=== PATIENT | female | born 2000 ===

== ENCOUNTER 2024-04-30 18:19 | Outpatient (CLI) | payer OTHER ==
--- NOTE | 2024-05-02 02:05 | Ultrasound Report ---
PROCEDURE: Pelvic w/Transvaginal INDICATIONS: DYSMENORRHEA TECHNIQUE: Transabdominal/transvaginal ultrasound of the pelvis was obtained. Endovaginal scanning wa s necessary due to incomplete visualization of the adnexal and endometrial structures by transabdomin al scanning. COMPARISON: None. FINDINGS: Uterine size: Uterus measures 6.5 x 3.5 x 4.2 cm, and is anteverted. Myometrium: The myometrium is homogeneous. Endometrium: The endometrium measures 7.9 mm in combined thickness. Right ovary: The right ovary measures 3.2 x 2.2 x 3.0 cm. Calculated ovarian volume 11 cc. Left ovary: The left ovary measures 2.6 x 1.9 x 2.6 cm. Calculated ovarian volume 6.6 cc. Other: No pathologic free abdominal or pelvic fluid. IMPRESSION: Unremarkable ultrasound of the pelvis Reviewed by: Simon Chen MD on 05/02/2024 1:03 AM [facility]AR[facility] Approved by: Simon Chen MD on 05/02/2024 1:03 AM ADAR[facility] Station ID: [id number]
== END 2024-04-30 18:20 | disposition home or self-care (01) ==
LOC: DI 18:19
PROVIDERS: ATTEND Preventive Medicine Aerospace Medicine
DX: N94.6 Dysmenorrhea, unspecified (principal)